=== PATIENT | male | born 1965 | race African-American/Black ===

== ENCOUNTER 2017-03-15 20:07 | Emergency (ER) | payer MEDICAID ==
[~2017-03-15] VITALS: Ht 185.4 cm; Wt 86.0 kg
[2017-03-15] MEDS ORDERED: KETOROLAC 60MG/2ML VIAL IM ONE (23:30)
[2017-03-16 02:30] VITALS: BP 128/72
== END 2017-03-16 02:30 | disposition home or self-care (01) ==
LOC: ER 22:31
DX: M94.0 Chondrocostal junction syndrome [Tietze] (principal); J45.909 Unspecified asthma, uncomplicated
CPT/HCPCS: 71020; 93005; 96372; 99284; J1885; Z7610

== ENCOUNTER 2018-09-25 10:40 | Emergency (ER) | payer MEDICAID ==
[~2018-09-25] VITALS: Ht 177.8 cm; Wt 85.1 kg
[2018-09-25 14:07] VITALS: BP 122/64
== END 2018-09-25 14:08 | disposition home or self-care (01) ==
LOC: ER 10:58
DX: S10.86XA Insect bite of other specified part of neck, initial encounter (principal); S20.469A Insect bite (nonvenomous) of unspecified back wall of thorax, initial encounter; J45.909 Unspecified asthma, uncomplicated; L29.8 Other pruritus; W57.XXXA Bitten or stung by nonvenomous insect and other nonvenomous arthropods, initial encounter; Y93.89 Activity, other specified; Y92.89 Other specified places as the place of occurrence of the external cause; Y99.8 Other external cause status
CPT/HCPCS: 99283

== ENCOUNTER 2018-12-19 14:51 | Emergency (ER) | payer MEDICAID ==
[~2018-12-19] VITALS: Ht 185.4 cm; Wt 84.0 kg
[2018-12-19 20:05] LABS: BASOPHILS % 0.8 % (0.0-2.0); EOSINOPHILS % 3.1 % (0.0-5.0); HEMOGLOBIN. 15.7 g/dL (14.0-18.0); LYMPHOCYTES % 28.4 % (20.0-50.0); MEAN CORPUSCULAR HEMOGLOBIN 30.4 pg (28.0-32.0); MEAN PLATELET VOLUME 9.6 fl (7.4-10.4); MONOCYTES % 6.1 % (2.0-8.0); NEUTROPHILS % 61.6 % (40.0-76.0); PLATELET 138 x1000/uL (130-400); RED BLOOD CELL COUNT 5.17 mill/uL (4.7-6.1); RED CELL DISTRIBUTION WIDTH 13.7 % (11.6-14.6)
[2018-12-19 20:11] LABS: CHLORIDE 105 mEq/L (98-107)
[2018-12-19 21:30] VITALS: BP 115/64
[2019-02-03] MEDS ORDERED: OMEP20CA5 MT (19:48)
== END 2018-12-20 00:20 | disposition home or self-care (01) ==
LOC: ER 14:51
DX: R07.9 Chest pain, unspecified (principal); R06.02 Shortness of breath; G47.30 Sleep apnea, unspecified; J45.909 Unspecified asthma, uncomplicated
CPT/HCPCS: 36415; 71045; 83880; 84484; 93005; 99284